=== PATIENT | female | born 1955 | race Caucasian/White ===

== ENCOUNTER 2018-07-25 18:33 | Emergency (ER) | payer OTHER ==
[2018-07-25 18:47] VITALS: TEMP 98; BMI 28.5
--- NOTE | 2018-07-25 19:52 | PDOC ---
History of Present Illness - General Chief Complaint: Pain Stated Complaint: PCP SENT/PAIN Time Seen by Provider: 07/25/18 19:24 History Source: Patient Exam Limitations: No Limitations - History of Present Illness Initial Comments: 07/26/18 02:16 Best Contact: PCP: Pmhx: Pshx: Allergies: FH: Social Hx: Cigarettes/ Alcohol/ Drugs/ LMP: 63-year-old female presents to the emergency department complaining of urinary dysuria, frequency, urgency without fever/chills, nausea/vomiting, chest pain, shortness of breath, back pains, flank pains, abdominal discomfort, hematuria. Patient was given Bactrim DS 1 tablet by mouth twice a day for the past 3 days and states the symptoms has minimally relief. Past History - Past Medical History Allergies/Adverse Reactions: Allergies Allergy/AdvReac Type Severity Reaction Status Date / Time No Known Allergies Allergy Verified 07/25/18 18:42 Home Medications: Ambulatory Orders Betamethasone Dipropionate [Diprosone] 15 gm TP DAILY 05/20/18 Cholecalciferol (Vitamin D3) [Vitamin D3] 50,000 unit PO ASDIR 05/20/18 Cyanocobalamin [Vitamin B12 -] 1,000 mcg PO DAILY 05/20/18 Folic Acid - 1 mg PO DAILY 05/20/18 Ketotifen Fumarate [Eye Itch Relief] 5 ml OP BID 05/20/18 Sulfamethoxazole/Trimethoprim [Bactrim Ds -] 1 tab PO BID 07/25/18 Phenazopyridine HCl [Pyridium] 200 mg PO TID #5 tablet 07/26/18 COPD: No Other medical history: eye problems - Suicide/Smoking/Psychosocial Hx Smoking History: Former smoker Have you smoked in the past 12 months: No Information on smoking cessation initiated: No Review of Systems - Review of Systems Able to Perform ROS?: Yes Comments:: 07/26/18 02:18 CONSTITUTIONAL: Absent: fever, chills, diaphoresis, generalized weakness, malaise, loss of appetite HEENT: Absent: rhinorrhea, nasal congestion, throat pain, throat swelling, difficulty swallowing, mouth swelling, ear pain, eye pain, visual Changes CARDIOVASCULAR: Absent: chest pain, loss of consciousness, palpitations, irregular heart rate, peripheral edema RESPIRATORY: Absent: cough, shortness of breath, dyspnea with exertion, orthopnea, wheezing, stridor, hemoptysis GASTROINTESTINAL: Absent: abdominal pain, abdominal distension, nausea, vomiting, diarrhea, constipation, melena, hematochezia GENITOURINARY: +dysuria, frequency, urgency Absent: , hesitancy, hematuria, flank pain, genital pain MUSCULOSKELETAL: Absent: myalgia, arthralgia, joint swelling SKIN: Absent: rash, itching, pallor HEMATOLOGIC/IMMUNOLOGIC: Absent: easy bleeding, easy bruising, lymphadenopathy, frequent infections ENDOCRINE: Absent: unexplained weight gain, unexplained weight loss, heat intolerance, cold intolerance NEUROLOGIC: Absent: headache, focal weakness or paresthesias, dizziness, unsteady gait, seizure, mental status changes, bladder or bowel incontinence PSYCHIATRIC: Absent: anxiety, depression, suicidal or homicidal ideation, hallucinations. GENERAL: Well developed, well nourished. Awake and alert. No acute distress. HEENT: Normocephalic, atraumatic. PERRLA, EOMI. No conjunctival pallor. Sclera are non- icteric. Moist mucous membranes. Oropharynx is clear. NECK: Supple. Full ROM. No JVD. Carotid pulses 2+ and symmetric, without bruits. No thyromegaly. No lymphadenopathy. CARDIOVASCULAR: Regular rate and rhythm. No murmurs, rubs, or gallops. Distal pulses are 2+ and symmetric. PULMONARY: No evidence of respiratory distress. Lungs clear to auscultation bilaterally. No wheezing, rales or rhonchi. ABDOMINAL: +suprapubic distention/discomfort of deep palp Soft. Non-distended. No rebound or guarding. No organomegaly. Normoactive bowel sounds. MUSCULOSKELETAL Normal range of motion at all joints. No bony deformities or tenderness. No CVA tenderness. EXTREMITIES: No cyanosis. No clubbing. No edema. No calf tenderness. SKIN: Warm and dry. Normal capillary refill. No rashes. No jaundice. NEUROLOGICAL: Alert, awake, appropriate. Cranial nerves 2-12 intact. No deficits to light touch and temperature in face, upper extremities and lower extremities. No motor deficits in the in face, upper extremities and lower extremities. Normoreflexic in the upper and lower extremities. Normal speech. Toes are down- going bilaterally. Gait is normal without ataxia. PSYCHIATRIC: Cooperative. Good eye contact. Appropriate mood and affect. 07/26/18 02:19 Is the patient limited Turkish proficient: No *Physical Exam - Vital Signs Last Vital Signs Temp Pulse Resp BP Pulse Ox 98 F 72 20 100/56 L 99 07/25/18 18:45 07/25/18 18:45 07/25/18 18:45 07/25/18 18:45 07/25/18 18:45 ED Treatment Course - LABORATORY CBC & Chemistry Diagram: 07/25/18 19:53 07/25/18 19:53 Progress Note - Progress Note Progress Note: After ivf/pt states she feels better *DC/Admit/Observation/Transfer Diagnosis at time of Disposition: Bladder distention, Dysuria - Discharge Dispostion Disposition: HOME Condition at time of disposition: Stable Decision to Admit order: No - Prescriptions Prescriptions: Phenazopyridine HCl [Pyridium] 200 mg PO TID #5 tablet - Referrals Referrals: Jarad Morales MD [Primary Care Provider] - Yonatan Garcia MD [Staff Physician] - - Patient Instructions Printed Discharge Instructions: DI for Dysuria -- Adult Additional Instructions: Be sure to follow up with the urologist this week Your ultrasound of your pelvis and urinary bladder shows a moderate distended urinary bladder without wall thickening. Bilateral ureteral jets were identified. Return to the ER for sevrere/persistent/worsening symptoms Tylenol alternate with Motrin as needed for pain Pyridium 200mg take 1 tablet as needed for bladder pressure/pain every 8 hours ONLY when needed Your urine will turn orange - Post Discharge Activity
[2018-07-25] MEDS ORDERED: SODIUM CHLORIDE 1,000 ML IV SCH (20:00)
[2018-07-25 20:26] LABS: BASO % 1.4 % (0-2.0); EOS % 1.6 % (0-4.5); HEMATOCRIT 39.5 % (32.4-45.2); HEMOGLOBIN 13.2 GM/dL (10.7-15.3); LYMPH % 40.2 % (8-40); MCH 31.5 pg (25.7-33.7); MCHC 33.5 g/dl (32.0-36.0); MEAN CELL VOLUME 93.9 fl (80-96); MONO % 11.2 % (3.8-10.2); NEUT % 45.6 % (42.8-82.8); PLATELET COUNT 213 K/MM3 (134-434); RBC 4.21 M/mm3 (3.60-5.2); RDW 14.3 % (11.6-15.6); WHITE BLOOD COUNT 5.5 K/mm3 (4.0-10.0)
[2018-07-25 20:27] LABS: URINE APPEARANCE CLEAR; URINE BILIRUBIN NEGATIVE (<2.0 mg/dL); URINE COLOR LTYELLOW; URINE GLUCOSE (UA) NEGATIVE (NEGATIVE); URINE KETONE NEGATIVE (NEGATIVE); URINE LEUK ESTERASE NEGATIVE (NEGATIVE); URINE NITRITE NEGATIVE (NEGATIVE); URINE PROTEIN NEGATIVE (NEGATIVE); URINE UROBILINOGEN NEGATIVE mg/dL (0.2-1.0)
[2018-07-25 20:36] LABS: URINE MUCUS RARE
[2018-07-25 20:50] LABS: ALBUMIN 3.6 g/dl (3.4-5.0); ALK PHOS 81 U/L (45-117); ANION GAP 9 MMOL/L (8-16); BILIRUBIN,TOTAL 0.2 mg/dL (0.2-1); BLOOD UREA NITROGEN 18 mg/dL (7-18); CALCIUM 9.1 mg/dL (8.5-10.1); CHLORIDE 107 mmol/L (98-107); CO2 25 mmol/L (21-32); GLUCOSE,RANDOM 80 mg/dL (74-106); POTASSIUM 4.8 mmol/L (3.5-5.1); SGOT/AST 20 U/L (15-37); SGPT/ALT 24 U/L (13-61); SODIUM 141 mmol/L (136-145)
[2018-07-25 20:57] VITALS: BP 106/78; PULSE 68
== END 2018-07-26 00:28 | disposition home or self-care (01) ==
LOC: JER 18:33
DX: R30.0 Dysuria (principal); N32.89 Other specified disorders of bladder
CPT/HCPCS: 36415; 76856-TC; 80053; 81003; 81015; 85025; 87086; 99282-25; J7030

== ENCOUNTER 2018-07-28 10:26 | Emergency (ER) | payer OTHER ==
[2018-07-28 10:37] VITALS: TEMP 98; BMI 28.5
[2018-07-28 12:50] LABS: URINE APPEARANCE CLEAR; URINE BILIRUBIN NEGATIVE (<2.0 mg/dL); URINE COLOR STRAW; URINE GLUCOSE (UA) NEGATIVE (NEGATIVE); URINE KETONE NEGATIVE (NEGATIVE); URINE LEUK ESTERASE NEGATIVE (NEGATIVE); URINE NITRITE NEGATIVE (NEGATIVE); URINE PROTEIN NEGATIVE (NEGATIVE); URINE UROBILINOGEN NEGATIVE mg/dL (0.2-1.0)
--- NOTE | 2018-07-28 12:56 | PDOC ---
History of Present Illness - General Chief Complaint: Pain Stated Complaint: REVISIT, PAIN Time Seen by Provider: 07/28/18 11:23 History Source: Patient Exam Limitations: No Limitations - History of Present Illness Travel History: No Initial Comments: 07/28/18 13:04 63-year-old female presents to ED with complaints of suprapubic pressure and burning continuously for the past week worsened with urination. Patient denies any hematuria, back pain, fever, chills, upper abdominal pain, abdominal distention or change in bowel pattern. Patient states went to her urologist today after having a bladder's ultrasound done along with urine here few days ago and was told to have abdominal CT since the ultrasound was inconclusive of findings. patient states was going to go straight to CT from the doctor's office but states the first appt was on and so then decided to come to the ER.. Timing/Duration: reports: constant Quality: reports: moderate, burning, cramping Abdominal Pain Onset Location: reports: suprapubic Pain Radiation: reports: RLQ, LLQ Activities at Onset: reports: none Aggravating Factors: improves with: Voiding Alleviating Factors: improves with: None Past History - Travel Traveled outside of the country in the last 30 days: No - Past Medical History Allergies/Adverse Reactions: Allergies Allergy/AdvReac Type Severity Reaction Status Date / Time No Known Allergies Allergy Verified 07/28/18 10:32 Home Medications: Ambulatory Orders Betamethasone Dipropionate [Diprosone] 15 gm TP DAILY 05/20/18 Cholecalciferol (Vitamin D3) [Vitamin D3] 50,000 unit PO ASDIR 05/20/18 Cyanocobalamin [Vitamin B12 -] 1,000 mcg PO DAILY 05/20/18 Folic Acid - 1 mg PO DAILY 05/20/18 Ketotifen Fumarate [Eye Itch Relief] 5 ml OP BID 05/20/18 Sulfamethoxazole/Trimethoprim [Bactrim Ds -] 1 tab PO BID 07/25/18 Phenazopyridine HCl [Pyridium] 200 mg PO TID #5 tablet 07/26/18 COPD: No - Immunization History Immunization Up to Date: Yes - Suicide/Smoking/Psychosocial Hx Smoking History: Never smoked Have you smoked in the past 12 months: No Information on smoking cessation initiated: No Patient Lives Alone: No Abd/GI Specific PMHX - Complaint Specific PMHX Colitis: No Diverticulitis: No Gall Bladder Disease: No Review of Systems - Review of Systems Able to Perform ROS?: Yes Constitutional: No: Symptoms Reported HEENTM: No: Symptoms Reported Respiratory: No: Symptoms reported Cardiac (ROS): No: Symptoms Reported ABD/GI: Yes: Abdominal cramping. No: Constipated, Diarrhea, Nausea, Poor Appetite, Poor Fluid Intake, Vomiting : Yes: Burning, Dysuria Musculoskeletal: No: Symptoms Reported Integumentary: No: Symptoms Reported Neurological: No: Symptoms reported Endocrine: No: Symptoms Reported Hematologic/Lymphatic: No: Symptoms Reported *Physical Exam - Vital Signs Last Vital Signs Temp Pulse Resp BP Pulse Ox 98.0 F 73 18 110/67 100 07/28/18 10:32 07/28/18 10:32 07/28/18 10:32 07/28/18 10:32 07/28/18 10:32 - Physical Exam General Appearance: Yes: Nourished, Appropriately Dressed. No: Apparent Distress HEENT: negative: Pale Conjunctivae Neck: positive: Normal Thyroid, Supple Respiratory/Chest: positive: Lungs Clear, Normal Breath Sounds. negative: Respiratory Distress, Accessory Muscle Use Cardiovascular: positive: Regular Rhythm, Regular Rate. negative: Murmur Vascular Pulses: Dorsalis-Pedis (R): 2+, Doralis-Pedis (L): 2+ Gastrointestinal/Abdominal: positive: Soft, Tenderness (lower periumbilical, right lower quad, left lower quad) Musculoskeletal: negative: CVA Tenderness Extremity: positive: Normal Capillary Refill. negative: Pedal Edema Integumentary: positive: Normal Color, Warm, Moist Neurologic: positive: Normal Mood/Affect, Motor Strength 5/5 (ambulatory) ED Treatment Course - LABORATORY CBC & Chemistry Diagram: 07/28/18 13:12 07/28/18 13:36 - RADIOLOGY Radiology Studies Ordered: Category Date Time Status ABDOMEN & PELVIS CT WITH CONTR [CT] Stat CT Scan 07/28/18 11:35 Ordered Medical Decision Making - Medical Decision Making 07/28/18 12:12 Patient here for evaluation of lower abdominal pain along with dysuria area patient was diagnosed with a UTI about a week ago she did Bactrim. Patient upon last ER visit was given Pyridium and told to follow-up with her urologist. Patient states symptoms continue despite having normal lab work and ultrasound done here a few days ago. Patient on exam did have lower abdominal tenderness without rebound or guarding. Bowel sounds present 4. No CVA tenderness. Patient ordered for labs urine and CT of the abdomen with IV and by mouth contrast to rule out colitis, mass, renal colic or hydronephrosis 07/28/18 14:38 Laboratory Tests 07/28/18 07/28/18 07/28/18 12:33 13:12 13:36 WBC 4.2 Hgb 13.6 Hct 41.8 Plt Count 197 Neutrophils % 46.9 Sodium 140 Potassium 4.8 Chloride 106 Carbon Dioxide 29 Anion Gap 5 L BUN 9 Creatinine 0.8 Random Glucose 80 Calcium 8.9 AST 25 ALT 28 Urine Ketones Negative Urine Blood 1+ H Urine Nitrite Negative Ur Leukocyte Esterase Negative Urine WBC (Auto) <1 Urine RBC (Auto) <1 07/28/18 16:56 CT of the abdomen shows no evidence of diverticulitis or acute pathology within the abdomen or pelvis. This is small fat-containing umbilical hernia. There is no evidence of acute appendicitis pelvic masses, fluid collection or lymphadenopathy. discharge HOME TO FOLLOW UP WITH CT SCAN TECH *DC/Admit/Observation/Transfer Diagnosis at time of Disposition: Lower abdominal pain - Discharge Dispostion Disposition: HOME Condition at time of disposition: Good - Referrals Referrals: Jarad Morales MD [Primary Care Provider] - - Patient Instructions Printed Discharge Instructions: DI for Abdominal Pain-Adult Additional Instructions: Please follow-up with your CT SCAN TECH at this point. Please take copy of the ultrasound and CAT scan with you. - Post Discharge Activity
[2018-07-28 13:38] LABS: BASO % 1.1 % (0-2.0); EOS % 1.2 % (0-4.5); HEMATOCRIT 41.8 % (32.4-45.2); HEMOGLOBIN 13.6 GM/dL (10.7-15.3); LYMPH % 41.4 % (8-40); MCH 30.6 pg (25.7-33.7); MCHC 32.6 g/dl (32.0-36.0); MEAN PLT VOLUME 7.7 fl (7.5-11.1); MONO % 9.4 % (3.8-10.2); NEUT % 46.9 % (42.8-82.8); PLATELET COUNT 197 K/MM3 (134-434); RBC 4.45 M/mm3 (3.60-5.2); RDW 14.5 % (11.6-15.6); WHITE BLOOD COUNT 4.2 K/mm3 (4.0-10.0)
[2018-07-28 14:12] LABS: ALBUMIN 3.6 g/dl (3.4-5.0); ALK PHOS 72 U/L (45-117); ANION GAP 5 MMOL/L (8-16); BILIRUBIN,TOTAL 0.4 mg/dL (0.2-1); BLOOD UREA NITROGEN 9 mg/dL (7-18); CALCIUM 8.9 mg/dL (8.5-10.1); CHLORIDE 106 mmol/L (98-107); CO2 29 mmol/L (21-32); CREATININE 0.8 mg/dL (0.55-1.3); GLUCOSE,RANDOM 80 mg/dL (74-106); POTASSIUM 4.8 mmol/L (3.5-5.1); SGOT/AST 25 U/L (15-37); SGPT/ALT 28 U/L (13-61); SODIUM 140 mmol/L (136-145)
[2018-07-28 18:12] VITALS: BP 100/64; PULSE 64
== END 2018-07-28 17:00 | disposition home or self-care (01) ==
LOC: JER 10:26
DX: R10.30 Lower abdominal pain, unspecified (principal); Z87.440 Personal history of urinary (tract) infections; K42.9 Umbilical hernia without obstruction or gangrene
CPT/HCPCS: 36415; 74178-TC; 80053; 81003; 81015; 85025; 87086; 99282-25

== ENCOUNTER 2018-07-31 15:20 | Emergency (ER) | payer OTHER ==
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
[2018-07-31 16:11] VITALS: BP 125/75; PULSE 71; TEMP 98.5; BMI 28.0
--- NOTE | 2018-07-31 16:35 | PDOC ---
History of Present Illness - General Chief Complaint: Weakness Stated Complaint: ANXIETY Time Seen by Provider: 07/31/18 15:59 Past History - Past Medical History Allergies/Adverse Reactions: Allergies Allergy/AdvReac Type Severity Reaction Status Date / Time No Known Allergies Allergy Verified 07/31/18 16:01 Home Medications: Ambulatory Orders Betamethasone Dipropionate [Diprosone] 15 gm TP DAILY 05/20/18 Cholecalciferol (Vitamin D3) [Vitamin D3] 50,000 unit PO ASDIR 05/20/18 Cyanocobalamin [Vitamin B12 -] 1,000 mcg PO DAILY 05/20/18 Folic Acid - 1 mg PO DAILY 05/20/18 Ketotifen Fumarate [Eye Itch Relief] 5 ml OP BID 05/20/18 Sulfamethoxazole/Trimethoprim [Bactrim Ds -] 1 tab PO BID 07/25/18 Phenazopyridine HCl [Pyridium] 200 mg PO TID #5 tablet 07/26/18 COPD: No - Immunization History Immunization Up to Date: Yes - Suicide/Smoking/Psychosocial Hx Smoking History: Never smoked Have you smoked in the past 12 months: No Hx Alcohol Use: No Drug/Substance Use Hx: No *Physical Exam - Vital Signs Last Vital Signs Temp Pulse Resp BP Pulse Ox 98.5 F 71 16 125/75 99 07/31/18 16:02 07/31/18 16:02 07/31/18 16:02 07/31/18 16:02 07/31/18 16:02 *DC/Admit/Observation/Transfer Diagnosis at time of Disposition: Panic attack - Discharge Dispostion Disposition: HOME Condition at time of disposition: Stable Decision to Admit order: No - Referrals Referrals: Jarad Morales MD [Primary Care Provider] - Watson Blevins NP [Nurse Practitioner] - - Patient Instructions Printed Discharge Instructions: DI for Anxiety -- Adult Additional Instructions: You had a panic attack due to the events that happened today. Please drink plenty of fluids and take many deep breaths. Please rest appropriately Follow-up with psychiatry in your symptoms persist. A referral has been provided for you. Return to the emergency department if you have worsening symptoms or any changes in your symptoms. Tuviste un ataque de pnico debido a los eventos que sucedieron hoy. Por favor, afsaneh muchos lquidos y respire hondo muchas veces. Por favor descansa apropiadamente Persiste el seguimiento con psiquiatra en anu sntomas. Se vidal proporcionado sabina referencia para usted. Regrese al departamento de emergencias si tiene sntomas que empeoran o algn cambio en anu sntomas. Print Language: TURKISH - Post Discharge Activity Forms/Work/School Notes: Back to Work
[2018-07-31] MEDS ORDERED: ALPRAZolam 0.25 MG TABLET PO ONE (17:03)
[2018-07-31] MEDS ORDERED: ALPRAZolam 0.25 MG TABLET ONE (17:07)
== END 2018-07-31 17:47 | disposition home or self-care (01) ==
LOC: JERFT 15:20
DX: F41.0 Panic disorder [episodic paroxysmal anxiety] (principal)
CPT/HCPCS: 99281-25

== ENCOUNTER 2018-12-08 09:50 | Emergency (ER) | payer OTHER ==
--- NOTE | 2018-12-08 10:15 | PDOC ---
History of Present Illness - General Chief Complaint: Respiratory Stated Complaint: FLU Time Seen by Provider: 12/08/18 10:14 - History of Present Illness Initial Comments: 12/08/18 10:36 63yo F with no significant PMH presents to the ED with 1 week of progressive productive cough, fevers, chills, and sore throat. Pt reports her temperatures have been "100 something" for 6 days on and off. Pt reports cough became much worse last night and she was unable to sleep due to the cough prompting an ED visit today. She states her throat hurts more when she coughs. She reports her cough has been productive of green and brown sputum. She has tried taking nyquil and mucinex with minimal improvement in her sxs. No SOB/CP. No recent hospitalizations. No hx PNA. Denies associated headache, dizziness, weakness/ numbness, abd pain, dysuria/hematuria/urgency, LE edema or pain. Past History - Past Medical History Allergies/Adverse Reactions: Allergies Allergy/AdvReac Type Severity Reaction Status Date / Time No Known Allergies Allergy Verified 12/08/18 10:16 Home Medications: Ambulatory Orders Cholecalciferol (Vitamin D3) [Vitamin D3] 50,000 unit PO ASDIR 05/20/18 Cyanocobalamin [Vitamin B12 -] 1,000 mcg PO DAILY 05/20/18 Folic Acid - 1 mg PO DAILY 05/20/18 Azithromycin 250 mg PO DAILY #4 tablet 12/08/18 COPD: No - Immunization History Immunization Up to Date: Yes - Suicide/Smoking/Psychosocial Hx Smoking History: Never smoked Have you smoked in the past 12 months: No Hx Alcohol Use: No Drug/Substance Use Hx: No Review of Systems - Review of Systems Comments:: 12/08/18 10:44 GENERAL/CONSTITUTIONAL: +fever and chills. No weakness. HEAD, EYES, EARS, NOSE AND THROAT: No change in vision. No ear pain or discharge. +sore throat. GASTROINTESTINAL: No nausea, vomiting, diarrhea or constipation. GENITOURINARY: No dysuria, frequency, or change in urination. CARDIOVASCULAR: No chest pain or shortness of breath. RESPIRATORY: +cough, no wheezing, or hemoptysis. MUSCULOSKELETAL: No joint or muscle swelling or pain. No neck or back pain. SKIN: No rash NEUROLOGIC: No headache, vertigo, loss of consciousness, or change in strength/ sensation. ENDOCRINE: No increased thirst. No abnormal weight change. HEMATOLOGIC/LYMPHATIC: No anemia, easy bleeding, or history of blood clots. ALLERGIC/IMMUNOLOGIC: No hives or skin allergy. *Physical Exam - Physical Exam Comments: 12/08/18 10:47 GENERAL: Awake, alert, and fully oriented, in no acute resp distress. Non toxic appearing. EYES: PERRLA, EOMI, sclera anicteric, conjunctiva clear ENT: Auricles normal inspection, hearing grossly normal, nares patent, oropharynx with mild OP erythema but otherwise clear without exudates. Moist mucosa NECK: Normal ROM, supple, +tender ant cervical LAD, JVD, or masses LUNGS: Breath sounds equal, clear to auscultation bilaterally. No wheezes, and crackles at R lung base that clear with coughing HEART: Regular rate and rhythm, normal S1 and S2, no murmurs, rubs or gallops ABDOMEN: Soft, nontender, normoactive bowel sounds. No guarding, no rebound. No masses EXTREMITIES: Normal range of motion, no edema. No cords, erythema, or tenderness NEUROLOGICAL: Normal speech, cranial nerves intact, equal strength and sensation b/l, normal gait. SKIN: Warm, Dry, normal turgor, no rashes or lesions noted. ED Treatment Course - LABORATORY CBC & Chemistry Diagram: 12/08/18 11:02 12/08/18 11:00 Medical Decision Making - Medical Decision Making 12/08/18 10:49 63yo healthy female presents to the ED with 6 days of sore throat, productive cough, fevers, chills. Vitals wnl. Exam with crackles at R lung base that clear with coughing. DDx includes bronchitis vs PNA vs viral syndrome. Will not swab for flu as pt has had sxs for 6 days and has no comorbidities. Plan for labs, CXR, saline neb, reassess. 12/08/18 12:04 labs wnl CXR clear In light of crackles auscultated on exam, will treat with z-pack Rpt HR 78, O2 sat remains 100% RA, remaining vitals stable as well Pt feels better, requests DC home Pt to f/u with Dr. Morales within 1-2 days I discussed the physical exam findings, ancillary test results and final diagnoses with the patient. I answered all of the patient's questions. The patient was satisfied with the care received and felt comfortable with the discharge plan and treatment plan. The patient will call their primary care physician within 24 hours to arrange follow-up and will return to the Emergency Department with any new, persistent or worsening symptoms. *DC/Admit/Observation/Transfer Diagnosis at time of Disposition: Cough, Bronchitis, Fever - Discharge Dispostion Disposition: HOME Condition at time of disposition: Good Decision to Admit order: No - Prescriptions Prescriptions: Azithromycin 250 mg PO DAILY #4 tablet - Referrals Referrals: Jarad Morales MD [Primary Care Provider] - - Patient Instructions Printed Discharge Instructions: DI for Acute Bronchitis Additional Instructions: Follow up with Dr. Morales within 1-2 days Take the azithromycin starting tomorrow (the first dose was given here in the emergency department) Return to the emergency department if you have any new, worsening, or concerning symptoms - Post Discharge Activity - Attestations Physician Attestion: 12/08/18 12:07 I, Dr. Guerrero Shaw MD, attest that this document has been prepared under my direction and personally reviewed by me in its entirety. I further attest, that it accurately reflects all work, treatment, procedures and medical decision -making performed by me.
[2018-12-08 10:20] VITALS: BP 113/65; PULSE 95; TEMP 98; BMI 28.5
[2018-12-08] MEDS ORDERED: SODIUM CHLORIDE FOR INHALATION 3 ML VIAL.NEB IH ONE (10:50)
[2018-12-08 10:56] LABS: PH,URINE 6.5 (4.5-8); URINE APPEARANCE Clear; URINE BILIRUBIN Negative (NEGATIVE); URINE GLUCOSE (UA) Negative (NEGATIVE); URINE KETONE Negative (NEGATIVE); URINE LEUK ESTERASE Negative (NEGATIVE); URINE NITRITE Negative (NEGATIVE); URINE PROTEIN Negative (NEGATIVE); URINE UROBILINOGEN 0.2 (0.2-1.0)
[2018-12-08 11:03] LABS: URINE COLOR YELLOW
[2018-12-08 11:21] LABS: BASO % 2.2 % (0-2.0); EOS % 1.4 % (0-4.5); HEMATOCRIT 42.3 % (32.4-45.2); HEMOGLOBIN 13.8 GM/dl (10.7-15.3); LYMPH % 19.6 % (8-40); MCHC 32.6 g/dl (32.0-36.0); MEAN CELL VOLUME 95.1 fl (80-96); MEAN PLT VOLUME 8.1 fl (7.5-11.1); MONO % 9.6 % (3.8-10.2); NEUT % 67.2 % (42.8-82.8); RBC 4.45 M/mm3 (3.60-5.2); RDW 13.4 % (11.6-15.6); WHITE BLOOD COUNT 8.1 K/mm3 (4.0-10.8)
[2018-12-08 11:33] LABS: PLATELET COUNT 234 K/MM3 (134-434)
[2018-12-08] MEDS ORDERED: AZITHROMYCIN 250 MG TABLET PO ONE (11:33)
[2018-12-08 11:41] LABS: ALBUMIN 3.7 g/dl (3.4-5.0); ALK PHOS 84 U/L (45-117); ANION GAP 9 MMOL/L (8-16); BILIRUBIN,TOTAL 0.7 mg/dl (0.2-1); BLOOD UREA NITROGEN 7 mg/dl (7-18); CALCIUM 9.3 mg/dl (8.5-10); CHLORIDE 103 mmol/L (98-107); CO2 26 mmol/L (21-32); CREATININE 0.8 mg/dl (0.55-1.3); GLUCOSE,RANDOM 81 mg/dl (74-106); SGOT/AST 27 U/L (15-37); SGPT/ALT 23 U/L (13-61); SODIUM 138 mmol/L (136-145); TOT PROT 6.8 g/dl (6.4-8.2)
[2018-12-08] MEDS ORDERED: AZITHROMYCIN 500 MG TABLET ONE (11:53)
[2018-12-08 12:33] LABS: EPI CELLS 2+ /HPF; URINE BACTERIA 1+ /hpf (NEGATIVE); URINE WBC 0-2 (0-5)
== END 2018-12-08 12:16 | disposition home or self-care (01) ==
LOC: FER 09:50
PROC: 3E0337Z Introduction of Electrolytic and Water Balance Substance into Peripheral Vein, Percutaneous Approach (ICD-10-PCS; principal; 2018-12-08)
DX: J40 Bronchitis, not specified as acute or chronic (principal); R50.9 Fever, unspecified; R05 Cough
CPT/HCPCS: 36415; 71046-TC-FY; 80053; 81003; 81015; 85025; 87086; 96360; 99282-25

== ENCOUNTER 2019-02-18 10:42 | Emergency (ER) | payer OTHER ==
[2019-02-18 10:47] VITALS: BP 142/52; PULSE 69; TEMP 97.9; BMI 28.5
--- NOTE | 2019-02-18 11:17 | PDOC ---
History of Present Illness - General Chief Complaint: Pain, Acute Stated Complaint: RIGHT FLANK PAIN Time Seen by Provider: 02/18/19 11:16 - History of Present Illness Initial Comments: 02/18/19 17:09 Chief complaint: Low back pain History of present illness: Patient was moving some furniture at home several days ago when she experienced a sudden twinge of bright lower back pain. Over the course of the next few days, pain, tightening, and stiffness more severe. Pain is localized over the right sacral area without radiation to the lower extremity. Review of systems: Denies fever/chills, URI symptoms, sore throat, cough, chest pain, shortness of breath, abdominal pain, nausea, vomiting, diarrhea, visual or focal neurologic symptoms, unsteadiness of gait, urinary tract symptoms including dysuria frequency urgency hesitancy or hematuria, vaginal bleeding or discharge Past medical history: Patient denies significant medical or surgical problems past her present, takes vitamins. Social/family history reviewed and noncontributory Physical exam: Alert and oriented well-developed well-nourished no acute distress cheerful and cooperative Afebrile, vital signs normal HEENT clear Neck supple without bruit mass or nodes Chest clear CV regular without murmur rub or gallop Abdomen benign No CVAT Neurological intact LS spine: No point tenderness or deformity. Maintenance of normal lumbar lordosis. No spasm. Patient indicates pain over the sacrum and right buttock. Straight leg raising is negative. No distal sensory or motor deficits. Flexion and extension are preserved. However, there is pain with arising from the lying or sitting position. Gait is unaffected Impression: Low back osteoskeletal strain Plan: Rest, symptomatic treatment, and orthopedic follow-up if no improvement. Completely ambulatory and in no significant pain at discharge to follow-up as directed. Past History - Past Medical History Allergies/Adverse Reactions: Allergies Allergy/AdvReac Type Severity Reaction Status Date / Time No Known Allergies Allergy Verified 02/18/19 10:43 Home Medications: Ambulatory Orders Cholecalciferol (Vitamin D3) [Vitamin D3] 50,000 unit PO ASDIR 05/20/18 Cyanocobalamin [Vitamin B12 -] 1,000 mcg PO DAILY 05/20/18 Folic Acid - 1 mg PO DAILY 05/20/18 Cyclobenzaprine HCl [Flexeril -] 10 mg PO TID #15 tablet 02/18/19 Diclofenac Potassium 50 mg PO QID PRN #20 tablet 02/18/19 COPD: No - Immunization History Immunization Up to Date: Yes - Suicide/Smoking/Psychosocial Hx Smoking History: Never smoked Have you smoked in the past 12 months: No Hx Alcohol Use: No Drug/Substance Use Hx: No Abd/GI Specific PMHX - Complaint Specific PMHX Colitis: No Diverticulitis: No Gall Bladder Disease: No *Physical Exam - Vital Signs Last Vital Signs Temp Pulse Resp BP Pulse Ox 97.9 F 69 19 142/52 L 100 02/18/19 10:43 02/18/19 10:43 02/18/19 10:43 02/18/19 10:43 02/18/19 10:43 *DC/Admit/Observation/Transfer Diagnosis at time of Disposition: Low back strain Qualifiers: Encounter type: initial encounter Qualified Code(s): S39.012A - Strain of muscle, fascia and tendon of lower back, initial encounter - Discharge Dispostion Disposition: HOME Condition at time of disposition: Improved Decision to Admit order: No - Prescriptions Prescriptions: Cyclobenzaprine HCl [Flexeril -] 10 mg PO TID #15 tablet Diclofenac Potassium 50 mg PO QID PRN #20 tablet PRN Reason: Pain - Referrals Referrals: Cayetano Berumen MD [Primary Care Provider] - 1 week - Patient Instructions Printed Discharge Instructions: DI for Low Back Pain Additional Instructions: Use heat Avoid all sitting in a chair, car, etc. as this is will aggravate the pain and the lady improvement Medication as directed, rest but with periodic standing and walking. - Post Discharge Activity
[2019-02-18] MEDS ORDERED: KETOROLAC TROMETHAMINE 60 MG/2 ML VIAL IM ONE (11:48)
[2019-02-18] MEDS ORDERED: hydrOXYzine PAMOATE 25 MG CAPSULE (FP) PO ONE ×2 (11:49→11:54)
[2019-02-18] MEDS ORDERED: KETOROLAC TROMETHAMINE 60 MG/2 ML VIAL ONE (11:54)
== END 2019-02-18 12:53 | disposition home or self-care (01) ==
LOC: SUPCPDRO 10:42 → FER 10:42
PROC: 3E0233Z Introduction of Anti-inflammatory into Muscle, Percutaneous Approach (ICD-10-PCS; principal; 2019-02-18)
DX: S39.012A Strain of muscle, fascia and tendon of lower back, initial encounter (principal)
CPT/HCPCS: 96372; 99282-25

== ENCOUNTER 2019-09-17 15:37 | Emergency (ER) | payer OTHER ==
[2019-09-17 15:45] VITALS: BP 101/67; PULSE 86; TEMP 97.7; BMI 28.5
[2019-09-17] MEDS ORDERED: IBUPROFEN 400 MG TABLET (FP) PO ONE ×2 (15:55→15:58)
[2019-09-17] MEDS ORDERED: ACETAMINOPHEN 500 MG TABLET (FP) PO ONE (16:03)
--- NOTE | 2019-09-17 16:03 | PDOC ---
History of Present Illness - General Chief Complaint: Injury Stated Complaint: TRIP & FALL, RIGHT KNEE, LEFT ARM PAIN Time Seen by Provider: 09/17/19 15:39 History Source: Patient Exam Limitations: No Limitations - History of Present Illness Initial Comments: 09/17/19 15:56 64 yo female no sig pmh presents to the ED 2 days after mechanical fall with right knee pain and swelling and left shoulder pain. Pt states she was attempting to step over a vacuum cord when she tripped over it, fell onto R knee and left shoulder. Pt states she was told by ortho that she requires L shoulder rotator cuff surgery and the pain in the left shoulder after the fall is of the same quality and location as past pain however the intensity is worse. Denies blood thinners, hitting her head, LOC, headaches, changes in vision, CP, SOB, abdominal pain, calf pain. Pt took diclofenac with some relief of pain and iced her knee. Admits difficulty ambulating and decreased knee flexion due to pain in the knee, swelling and discoloration. Pt is able to full weight bare. Past History - Past Medical History Allergies/Adverse Reactions: Allergies Allergy/AdvReac Type Severity Reaction Status Date / Time No Known Allergies Allergy Verified 09/17/19 15:40 Home Medications: Ambulatory Orders Oxybutynin Chloride [Oxybutynin Chloride ER] 5 mg PO ASDIR 09/17/19 COPD: No - Immunization History Immunization Up to Date: Yes - Psycho Social/Smoking Cessation Hx Smoking History: Former smoker Have you smoked in the past 12 months: No Information on smoking cessation initiated: No Hx Alcohol Use: No Drug/Substance Use Hx: No Review of Systems - Review of Systems Constitutional: No: Chills, Fever HEENTM: No: Eye Pain, Double Vision Respiratory: No: Shortness of Breath Cardiac (ROS): No: Chest Pain, Lightheadedness, Palpitations, Syncope ABD/GI: No: Constipated, Diarrhea, Nausea, Vomiting, Abdominal cramping : No: Burning, Dysuria, Flank Pain Musculoskeletal: Yes: Joint Pain (right knee and left shoulder). No: Back Pain Integumentary: Yes: Change in Color (bruise to right knee) Neurological: No: Headache, Numbness, Paresthesia, Weakness *Physical Exam - Vital Signs Last Vital Signs Temp Pulse Resp BP Pulse Ox 97.7 F 86 18 101/67 100 09/17/19 15:37 09/17/19 15:37 09/17/19 15:37 09/17/19 15:37 09/17/19 15:37 - Physical Exam General Appearance: Yes: Nourished, Appropriately Dressed, Apparent Distress HEENT: positive: EOMI, LANDRY, Hearing Grossly Normal Neck: positive: Supple. negative: Carotid bruit Respiratory/Chest: positive: Lungs Clear, Normal Breath Sounds. negative: Accessory Muscle Use, Rales, Stridor, Wheezing Cardiovascular: positive: Regular Rhythm, Regular Rate, S1, S2. negative: Edema , JVD, Murmur Vascular Pulses: Dorsalis-Pedis (R): 4+, Doralis-Pedis (L): 4+ Gastrointestinal/Abdominal: positive: Flat, Soft. negative: Pulsatile Mass, Protuberent, Distended, Guarding, Rebound, Tenderness Musculoskeletal: negative: CVA Tenderness Extremity: positive: Normal Capillary Refill, Tender (entire anterior knee painful to light trouch and swollen). negative: Normal Inspection, Normal Range of Motion (limited in knee flexion), Calf Tenderness Integumentary: positive: Dry, Warm, Bruising Neurologic: positive: secondary connector armature II-XII NML intact, Fully Oriented, Alert, Normal Mood/ Affect, Normal Response, Motor Strength 5/5. negative: Sensory Deficit, Confused, Disoriented ED Treatment Course - RADIOLOGY Radiology Studies Ordered: Category Date Time Status KNEE 3 POS-RIGHT [RAD] Stat Radiology 09/17/19 15:53 Ordered SHOULDER-LEFT [RAD] Stat Radiology 09/17/19 15:53 Ordered Medical Decision Making - Medical Decision Making 09/17/19 16:11 64 yo female no sig pmh presents to the ED 2 days after mechanical fall with right knee pain and swelling and left shoulder pain. Pt states she was attempting to step over a vacuum cord when she tripped over it, fell onto R knee and left shoulder. Pt states she was told by ortho that she requires L shoulder rotator cuff surgery and the pain in the left shoulder after the fall is of the same quality and location as past pain however the intensity is worse. Denies blood thinners, hitting her head, LOC, headaches, changes in vision, CP, SOB, abdominal pain, calf pain. Pt took diclofenac with some relief of pain and iced her knee. Admits difficulty ambulating and decreased knee flexion due to pain in the knee, swelling and discoloration. Pt is able to full weight bare. Vitals WNL Pt suffered mechanical fall without head injury, not on AC. Isolated pain to the right knee and left shoulder, will X ray to r/o dislocations or fractures given 800 mg Motrin and 500 mg Tylenol will reassess after imaging 09/17/19 18:08 Imaging negative for fractures or dislocation Pt placed in knee mobilizer, given crutches and f/u if needed with Ortho. RICE precautions given and advised to use Motrin for pain or swelling pt understands DC instructions Discharge - Discharge Information Problems reviewed: Yes Clinical Impression/Diagnosis: Knee sprain Condition: Stable Disposition: HOME - Admission No - Follow up/Referral Referrals: Cayetano Berumen MD [Primary Care Provider] - Isaac Driscoll MD [Staff Physician] - Thierry Blanchard MD [Staff Physician] - Vladimir Johnson MD [Staff Physician] - Aayush Stein DO [Staff Physician] - - Patient Discharge Instructions Patient Printed Discharge Instructions: How to Prevent Falls, DI for Knee Pain Additional Instructions: Please see your Primary Doctor within the next 48 hours. Use over the counter NSAID medication such as Motrin every 6 hours for pain and swelling. Rest, ice, compress and elevate your knee and use the knee mobilizer over the next 3-5 days along with crutches as tolerated. Make an appointment with one of the Orthopedic surgeons referred to you if the pain does not improve. Return to the ER for new or concerning symptoms including but not limited to: inability to walk, no improval of knee pain after 1 week. Thank you - Post Discharge Activity
[2019-09-17] MEDS ORDERED: ACETAMINOPHEN 500 MG TABLET (FP) ONE (16:05)
--- NOTE | 2019-09-17 17:38 | PDOC ---
Attending Attestation - Resident Resident Name: KiranWilson reeder - ED Attending Attestation I have performed the following: I have examined & evaluated the patient, The case was reviewed & discussed with the resident, I agree w/resident's findings & plan - HPI HPI: 09/17/19 17:38 64 yo female no sig pmh presents to the ED 2 days after mechanical fall with right knee pain and swelling and left shoulder pain. she had tripped over vacuum cord about 2 days ago at home, fell onto her right knee and braced with her arms, causing left arm pain Pt states she was told by ortho that she requires L shoulder rotator cuff surgery and the pain in the left shoulder after the fall is of the same quality and location as past pain however the intensity is worse. Denies blood thinners , hitting her head, LOC, headaches, changes in vision, CP, SOB, abdominal pain, calf pain. Pt took diclofenac with some relief of pain and iced her knee. Admits difficulty ambulating and decreased knee flexion due to pain in the knee , swelling and discoloration. able to ambulate. - Physicial Exam PE: 09/17/19 17:34 physical exam General: NAD, well appearing Abdomen: soft, no tenderness, nondistended Vascular: 2+ DP pulses symmetric and equal. Back: no midline tenderness, no stepoffs, FROM MSK: notable for soft compartments, Cap refill <2 sec. Proximal and distal strength 5/5, counter hop strength 5/5 - equal and symmetric. Plantar flexion and dorsiflexion 5/5. FROM. Sensation grossly intact to light touch. No calf tenderness. Neuro: alert, no focal neurologic deficits Skin: color normal color, warm and well perfused. Cap refill <2 sec. Upper Extremity: shoulder abduction/adduction/flexion/extension and prox strength 5/5 actively against resistance. 5/5 shoulder shrug strength. deltoid sensation intact; sensation grossly intact in median/radial/ulnar distribution. distal counter hop strength 5/5. 2+ radialis pulses bilaterally and symmetric. +left supraspinatus TTP, FROM at the shoulder, with good flexion/extension, internal and external rotation. Lower Extremity: soft compartment. no calf tenderness. 5/5 plantar and dorsiflexion. SILT. no laxity at knee jt. 2+ DP pulses bilaterally. +diffuse right knee ecchymosis (healing), tenderness. +right lateral thigh TTP, no ecchymosis or discoloration - Medical Decision Making 09/17/19 17:36 Vital Signs Temp Pulse Resp BP Pulse Ox 97.7 F 86 18 101/67 100 09/17/19 15:37 09/17/19 15:37 09/17/19 15:37 09/17/19 15:37 09/17/19 15:37 Trauma ddx: extremity sprain/fracture, pelvis fracture. hip/femur fx, patella fx. MSK contusion / hematoma, msk spasms. no head injury. doubt knee dislocation/vascular injury, as pt is ambulatory, knee exam unremarkable, neurovasc intact. VS reviewed, wnl Xray pelvis/hip and right knee normal joint space alignment, no acute fx or dislocation. shoulder xray with good alignment, no fx/dislocation. no patella fx. Discussed results with patient. knee brace for comfort, WBAT, expectant management 3-5 days conservative therapy, ROM exercises encouraged, avoid using immobilizer > 3 days. Rest ice and elevation. Pain control with OTC meds including motrin/tylenol as needed every 6 hours; no narcotics needed. Ortho followup provided. Please return to ED for increased pain, weakness, numbness/tingling, fever, or redness. ortho followup recommended, referrals given (pt also has her own orthopedist, pending arthroscopy for her shoulder) 09/17/19 17:38
== END 2019-09-17 17:40 | disposition home or self-care (01) ==
LOC: FER 15:37
PROC: 2W3QX1Z Immobilization of Right Lower Leg using Splint (ICD-10-PCS; principal; 2019-09-17)
DX: S83.91XA Sprain of unspecified site of right knee, initial encounter (principal); W19.XXXA Unspecified fall, initial encounter; Y93.9 Activity, unspecified; Y92.9 Unspecified place or not applicable; Z87.891 Personal history of nicotine dependence
CPT/HCPCS: 73030-TC-LT-FY; 73523-TC-FY; 73552-TC-RT-FY; 73562-TC-RT-FY; 99282-25

== ENCOUNTER 2020-06-10 14:07 | Day surgery (SDC) | payer OTHER ==
[2020-06-08 14:07] VITALS: BMI 29.4
--- NOTE | 2020-06-10 14:03 | OPR ---
Procedure: Left Shoulder- 1. Diagnostic arthroscopy. 2. Arthroscopic extensive debridement of glenohumeral joint (95447). 3. Arthroscopic subacromial decompression (65776). 4. Arthroscopic rotator cuff repair: Supraspinatus (92252). 5. Arthroscopic-assisted biceps tenodesis-subpectoral (22828). 6. Distal clavicle resection (95290, append 51 modifier). Preoperative Diagnoses: 1. Rotator cuff tear- Supraspinatus. 2. Biceps tendon degeneration. 3. Glenohumeral synovitis. 4. AC joint arthrosis. Postoperative Diagnoses: 1. Rotator cuff tear- Supraspinatus, 1.5 cm x 2.5 cm. 2. Biceps tendon degeneration and tear. 3. Labral degeneration and fraying; 4. Glenohumeral synovitis. 5. Subacromial bursitis and adhesions. 6. AC joint arthrosis 7. Hill-Sachs lesion 8. 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 Estimated Blood Loss: Minimal Drains: None Total IV Fluids: Per anesthesia record Specimens: None Implants: [employer]hew 5.5mm Healicoil PEEK [place], double loaded (2); 4.5mm FootPrint PEEK [place]; 1.9mm SutureFix [place], double loaded with suture Complications: None Disposition: PACU Condition: Hemodynamically stable Indications: Caren Moses presented to us with chronic left shoulder pain that failed conservative measures. Her symptoms, signs, and imaging were consistent with the above noted diagnoses. She was an appropriate candidate for surgery due her young age, ongoing symptoms and dysfunction despite conservative measures. She ultimately elected to proceed with surgical intervention after discussion of the risks, benefits, alternatives. We discussed risks including but not limited to, bleeding, pain, infection, scarring, damage to neurovascular structures, blood clots, pulmonary embolus, need for additional surgery, incomplete relief of pain, and incomplete return of function. She expressed understanding and wished to proceed. She underwent preoperative medical evaluation clearance and optimization prior to surgery. Procedure Details: She was identified in the preoperative area. The left shoulder was marked as the operative site and consent was completed and confirmed. An interscalene block was performed by the anesthesia team in the preoperative holding area. She was later transferred to the operating room and placed in supine position the operating room. General anesthesia was induced without difficulty. She was repositioned into beach chair with all bony prominences appropriately padded. The neck was in neutral alignment. A surgical time-out was performed identifying the correct patient, procedure, and site. Antibiotics were given within 1 hour prior to surgical incision. The upper extremity was prepped and draped in standard sterile fashion. Examination under anesthesia: Passive range of motion of the right shoulder showed forward elevation of 170, abduction 100, external rotation at side 60, SABER 90, SABIR 60. This was compared to her contralateral shoulder which shows forward elevation of 170, abduction 100 external rotation at side 40, SABER 90, SABIR 40. Diagnostic arthroscopy: We began the procedure with the standard posterolateral portal, entered the glenohumeral joint, and an anterior portal was made within the rotator cuff interval under direct visualization with the assistance of a spinal needle. A probe was used to assist with diagnostic arthroscopy and we visualized from both posteriorly and anteriorly. Evaluation of the glenohumeral joint showed significant synovitis globally. The superior labrum had a degenerative tear that was debrided back to a stable base. The anterior labrum was probed and found to be frayed. The posterior labrum was probed and found to be frayed. There were no loose bodies in the inferior pouch. There was no HAGL lesion. The biceps tendon showed hyperemia. The rotator cuff interval showed hyperemia. The axillary recess was empty. The subscapularis was probed and found to be intact. The supraspinatus was found to be torn from the greater tuberosity. The articular surface of the infraspinatus and teres minor tendons were intact. The glenoid showed areas of grade II and III chondromalacia. The humeral head showed an old Hill-Sachs lesion and areas of grade II and III chondromalacia. Evaluation of the subacromial space showed significant bursitis and adhesions. There was small acromial spur anteriorly. There was fraying of the CA ligament. The AC joint was narrowed, with arthritic changes including corazon-articular osteophytes and sclerosis. The rotator cuff was found to be delaminated and torn from the tuberosity. The tear measured 1.5 x 2.5 cm. Arthroscopic extensive debridement of the glenohumeral joint: We used a combination of the arthroscopic motorized shaver and radiofrequency device to perform an extensive debridement inside the glenohumeral joint anteriorly and posteriorly. The hyperemia, erythema, and synovitis of the joint and joint capsule was aggressively debrided both anteriorly and posteriorly. Synovitic fronds were thermally ablated. Labral fraying and degeneration was also resected and debrided to a stable edge anteriorly and posteriorly. Chondral degeneration was debrided to a stable edge. The biceps tendon was tenotomized as it inserted into the superior labral complex and the remaining portion of the biceps tendon was allowed to retract into the bicipital groove for later tenodesis. Arthroscopic-assisted biceps tenodesis: We made a 2 cm incision along Kenneth's lines in the axillary fold. Sharp dissection was carried out down to the level of the pectoralis major. The plane between the pectoralis major and the short head of biceps tendon was developed bluntly down to the level of the humeral bone, where we identified the long head of biceps tendon and delivered it retrograde out of the wound. The underlying soft tissue was resected and the bone was frayed with a 1/4-inch osteotome. We then selected a 1.9 SutureFix anchor and placed the anchor high within the bicipital groove underneath the pectoralis major tendon. The sutures were then passed just proximal to the musculotendinous junction of the long head of biceps in an alternating simple versus lasso loop configuration. Tying these sutures down tenodesed the tendon onto the underlying frayed humeral bone. We used an arthroscopic knot pusher to get excellent knot fixation, and then arthroscopic production gear cutter to cut the remaining length of the suture. The remaining length of the biceps tendon was resected. We confirmed our arthroscopic knots and position of the biceps tendon underneath the pectoralis major with the arthroscope. We thoroughly irrigated the wound. Arthroscopic subacromial decompression: The subacromial space was entered from posteriorly. A separate anterior-lateral portal and posterior-lateral portal were made for additional instrumentation and visualization. We then visualized the rotator cuff pattern as noted above, and performed our subacromial decompression in a systematic fashion from anterior to posterior and from lateral to medial, removing the bursal tissue carefully. This was done with a radiofrequency device and motorized shaver. The undersurface of the acromion was skeletonized and gently debrided to a flat smooth undersurface. There was a small anterior-inferior spur that was resected with a motorized bur. Arthroscopic rotator cuff repair: We turned our attention to rotator cuff repair of the supraspinatus. We debrided the remnant tissue over the greater tuberosity and debrided frayed tissue from the rotator cuff tendon edge. We debrided the greater tuberosity with a motorized bur to slightly decorticate it, preparing a bony bed to receive the rotator cuff tendon. We used two double loaded 5.5 mm Mobley [employer] Nephew PEEK helicoil anchors for repair of the rotator cuff and they were placed in the rotator cuff footprint lateral to the articular margin, one anteriorly and one posteriorly. These had excellent fixation within the bone. The sutures from each anchor were then passed through the supraspinatus with the tissue-piercing Firstpass, approximately 1.5 cm from its torn edge in a crescent pattern. Sutures were then shuttled appropriately through the cannulas and arthroscopic knots were tied with a knot pusher. One set of sutures from each medial anchor were then passed throught the lateral Footprint PEEK anchor and impacted into the lateral aspect of the greater tuberosity. This achieved good fixation of the rotator cuff into the greater tuberosity with good compression of the rotator cuff into the the tuberosity footprint from medial to lateral. We promoted some localized bone bleeding and marrow elements with an awl in the lateral aspect of the greater tuberosity. We thoroughly irrigated the subacromial space and we removed the arthroscopic equipment. Arthroscopic AC joint resection: The AC joint space was narrowed, with arthritic changes including corazon-articular osteophytes and sclerosis. We used the anterior and lateral portals for instrumentation. Soft tissue within the AC joint was removed with a motorized shaver and radiofrequency device. We resected the joint by using a barrel erasmo 4 mm in diameter. 2-3 mm of the medial aspect of the acromion was burred to a flat surface and about 6-7 mm of the lateral end of the clavicle was similarly resected with the erasmo. The surrounding osteophytes were also resected. The AC joint was stable upon completion of the distal clavicle excision. Approximately 1 cm of space was present between the acromion and clavicle after the resection. We thoroughly irrigated the subacromial space and axillary incision and we removed the arthroscopic equipment. Wound closure: The arthroscopic portal incisions were closed with 3-0 Monocryl sutures. The axillary incision again irrigated and closed with 2-0 Vicryl, 3-0 Monocryl subcuticular stitch, and Dermabond skin glue. The shoulder was sterilely dressed and placed in a shoulder immobilizer. Post-operative Details: I spoke with the family regarding the operation after surgery. Postoperative rehabilitation: Arthroscopic rotator cuff repair protocol. She will remain in a shoulder immobilizer for 6 weeks. Early passive range of motion okay with no limits and advance as tolerated; no pendulums. No strengthening for at least 5 months. Attestation for construction administrative assistant: Dr. Aayush Stein acted as the construction administrative assistant. There was no qualified resident or physician assistant branch operations manager available to do so.
[~2020-06-10 14:07] MED LIST: ACETAMINOPHEN 325 MG TABLET (FP) PO PRN; BUPIVACAINE HCL/PF 0.25% (2.5MG/ML) 10 ML VIAL ONE; CEFAZOLIN 2 GM/D5W 2 GM/50 ML ML IVPB ONE; EPINEPHrine/PF 1 MG/1 ML (1:1,000) AMPULE ONE; LABETALOL HCL 5 MG/1 ML (100MG/20 ML VIAL) ONE; MIDAZOLAM HCL 2 MG/2 ML SINGLE DOSE VIAL ONE; ONDANSETRON 4 MG/2 ML VIAL IVPUSH PRN; PROMETHAZINE HCL 25 MG/1 ML VIAL IVPUSH PRN; PROPOFOL 20 ML ONE; ROPIVACAINE HCL 0.5% 30ML VIAL ONE; SUCCINYLCHOLINE CHLORIDE 200 MG/10 ML SYRINGE ONE; ceFAZolin SODIUM 1 GM VIAL IVPB ONE; ceFAZolin SODIUM 1 GM VIAL ONE; ePHEDrine SULFATE 50 MG/1 ML AMPULE ONE; oxyCODONE HCL 5 MG TABLET PO PRN
[2020-06-10] MEDS ORDERED: oxyCODONE HCL 5 MG TABLET PO PRN (14:08)
[2020-06-10] MEDS ORDERED: morphine SULFATE 4 MG/ML VIAL SQ PRN (14:18)
[2020-06-10] MEDS: oxyCODONE HCL 5 MG TABLET PO PRN ×2 (17:17→22:49)
[2020-06-10] MEDS: ACETAMINOPHEN 500 MG TABLET (FP) PO SCH ×2 (17:28→23:54)
[2020-06-10 22:52] VITALS: PULSE 60
[2020-06-11] MEDS: ACETAMINOPHEN 500 MG TABLET (FP) PO SCH (06:04)
[2020-06-11 06:21] VITALS: BP 92/50; TEMP 98.3
--- NOTE | 2020-06-11 09:16 | PN ---
Progress Note (short form) - Note Progress Note: ORTHOPEDIC SURGERY PROGRESS NOTE Department of Orthopedic Surgery SUBJECTIVE No acute events overnight. No complaints currently. Denies chest pain, shortness of breath, or calf pain. No nausea or vomiting. Tolerating oral intake. Pain controlled. She has some tingling and numbness in her thumb, but improving. PHYSICAL EXAMINATION General: Alert, oriented, cooperative and no distress. Upper Extremity: Dressing/immobilizer intact; No significant swelling. Compartments soft. Full passive ROM elbow and wrist, free from pain. M/R/U/MSK/AX motor intact; SILT distally; 2+ radial pulses; Cap refill brisk. DVT Exam: No evidence of DVT seen on physical exam; No cords or calf tenderness; No significant calf/ankle edema. Intake & Output 06/09/20 06/10/20 06/11/20 23:59 23:59 23:59 Intake Total 1500 60 Output Total 450 Balance 1050 60 Intake: IV 1000 Oral 500 60 Output: Urine 400 Void 400 Estimated Blood Loss 50 Other: Voiding Method Toilet Toilet # Unmeasured Voids Void 1 Bowel Movement No No Weight 160 lb 11.094 oz Height 5 ft 2 in Body Mass Index (BMI) 29.4 Weight Measurement Method Standing Scale Active Medications Generic Name Dose Route Start Last Admin Trade Name Freq PRN Reason Stop Dose Admin Acetaminophen 1,000 mg 06/10/20 18:00 06/11/20 06:04 Tylenol - PO 1,000 mg Q6H VIMAL Administration Fentanyl 50 mcg 06/10/20 13:10 Sublimaze Injection - IVPUSH [id number] PRN PAIN-PACU ORDER X 4 DOSES ONLY Morphine Sulfate 4 mg 06/10/20 14:18 Morphine Sulfate SQ Q6H PRN PAIN LEVEL 7 - 10 Ondansetron HCl 4 mg 06/10/20 14:04 Zofran Injection IVPUSH Q6H PRN NAUSEA Oxycodone HCl 5 mg 06/10/20 14:04 Roxicodone - PO Q4H PRN PAIN LEVEL 1-3 Oxycodone HCl 10 mg 06/10/20 14:57 06/10/20 22:49 Roxicodone - PO 06/13/20 14:56 10 mg Q4H PRN Administration PAIN LEVEL 4 - 6 Promethazine HCl 12.5 mg 08/14/20 13:10 Phenergan Injection - IVPUSH Q6H PRN NAUSEA-FOR RESCUE AFTER 15 MIN Vital Signs (last) Temp Pulse Resp BP Pulse Ox 98.3 F 60 18 92/50 L 100 06/11/20 06:00 06/11/20 06:00 06/11/20 06:00 06/11/20 06:00 06/11/20 06:00 ASSESSMENT AND PLAN Caren Moses is a 62 year old female status post left shoulder arthroscopic rotator cuff repair, biceps tenodesis, debridement, subacromial decompression, and distal clavicle resection. POD#1. Doing well. Pain controlled. - Pain control: Transition to oral pain medications, minimize narcotic use - Ice/Elevation - Discharge home today
--- NOTE | 2020-06-14 17:05 | PATH ---
Surgical Pathology Report Patient Name: FRANCISCA BAKER Med. Rec. #: [id number] /Age/Gender: 1955 (Age: 65) / F Account: [id number] Location: [facility] Taken: 06/10/2020 Received: 06/10/2020 Reported: 06/14/2020 Physicians: Taran Valentine DO Specimen(s) Received LEFT BICEPS TENDON Clinical History Left shoulder bursitis Final Diagnosis BICEPS TENDON, LEFT, EXCISION: FIBROCOLLAGENOUS TISSUE, CONSISTENT WITH TENDON. Electronically Signed Funmilayo Noriega M.D. Gross Description Received in formalin labeled "left biceps tendon," is a 5.0 x 1.0 x 0.4 cm roblero portion of fibrous tissue, consistent with a tendon. Community Health Nurse Supervisor sections are submitted in one cassette. 06/13/2020 [facility]06/13/2020
== END 2020-06-11 10:20 | disposition home or self-care (01) ==
LOC: FASU 14:07 → FM/S 14:07 → FASU 06-11 10:20
PROVIDERS: ATTEND Orthopaedic Surgery
PROC: 0PBB4ZZ Excision of Left Clavicle, Percutaneous Endoscopic Approach (ICD-10-PCS; 2020-06-10)
PROC: 0RBK4ZZ Excision of Left Shoulder Joint, Percutaneous Endoscopic Approach (ICD-10-PCS; 2020-06-10)
PROC: 0LS40ZZ Reposition Left Upper Arm Tendon, Open Approach (ICD-10-PCS; 2020-06-10)
PROC: 0LQ24ZZ Repair Left Shoulder Tendon, Percutaneous Endoscopic Approach (ICD-10-PCS; principal; 2020-06-10 09:33)
PROC: 0LS44ZZ Reposition Left Upper Arm Tendon, Percutaneous Endoscopic Approach (ICD-10-PCS; 2020-06-10 09:33)
PROC: 0RNK4ZZ Release Left Shoulder Joint, Percutaneous Endoscopic Approach (ICD-10-PCS; 2020-06-10 09:33)
DX: M75.112 Incomplete rotator cuff tear or rupture of left shoulder, not specified as traumatic (principal); M66.812 Spontaneous rupture of other tendons, left shoulder; M65.812 Other synovitis and tenosynovitis, left shoulder; M75.52 Bursitis of left shoulder; M19.012 Primary osteoarthritis, left shoulder; M25.812 Other specified joint disorders, left shoulder; M94.212 Chondromalacia, left shoulder
CPT/HCPCS: 88304-TC; 88311-TC; 94760

== ENCOUNTER 2020-10-20 10:34 | Emergency (ER) | payer OTHER | END 2020-10-20 12:32 | disposition home or self-care (01) | LOC: JVIRT 10:34 | DX: Z20.828 Contact with and (suspected) exposure to other viral communicable diseases (principal) | CPT/HCPCS: C9803; G2012-GT; Q3014-GT; U0003 ==